=== PATIENT | male | born 1965 | race Caucasian/White ===

== ENCOUNTER → 2019-01-13 | Outpatient (CLI) | payer OTHER ==
[~2019-01-13] MED LIST: CIPR-344 PO; METR500T15 PO
--- NOTE | 2019-01-13 10:59 | RADIOLOGY IMAGING REPORT ---
FACILITY: [facility] PATIENT NAME: Dominic Coronel : 1965 MR: [id number] V: [id number] EXAM DATE: ORDERING PHYSICIAN: MARC GEORGE TECHNOLOGIST: Location: [facility] Patient: Dominic Coronel : 1965 Visit/Account:[id number] Date of Sevice: 01/13/2019 Technique: ACUTE ABDOMEN SERIES 3 VIEW HISTORY: Abdominal pain Comparison studies: Chest radiograph February 22, 2016 report FINDINGS: No acute airspace consolidation. No pleural effusion. No free intraperitoneal air. The b owel gas pattern is nonobstructive. There is moderate stool volume throughout the colon. No evidenc e of organomegaly. IMPRESSION: 1. No acute intra-abdominal process. 2. Moderate stool volume throughout the colon. Report Dictated By: Fernando Luke DO at 01/13/2019 10:53 AM Report E-Signed By: Fernando Luke DO at 01/13/2019 10:55 AM WSN:[id number]
[2019-01-13 11:30] LABS: PLATELET COUNT, AUTOMATED 245 K/uL (150-450)
== END ==
LOC: LAB 10:05
PROVIDERS: ATTEND Internal Medicine
DX: K59.00 Constipation, unspecified (principal); R10.9 Unspecified abdominal pain; R50.9 Fever, unspecified
CPT/HCPCS: 36415; 74022; 81001; 82040; 82150; 82247; 82310; 82374; 82435; 82565; 82947; 83690; 84075; 84132; 84153; 84155; 84295; 84443; 84450; 84460; 84520; 85025

== ENCOUNTER → 2019-01-14 | Outpatient (CLI) | payer OTHER ==
[~2019-01-14] MED LIST changes: +IOPAMIDOL 61% 100 ML INFUS BTL 100 ML ONE
--- NOTE | 2019-01-14 16:00 | RADIOLOGY IMAGING REPORT ---
FACILITY: [facility] [place] PATIENT NAME: Dominic Coronel : 1965 MR: [id number] V: [id number] EXAM DATE: ORDERING PHYSICIAN: MARC GEORGE TECHNOLOGIST: Location: [facility] [place] Patient: Dominic Coronel : 1965 Visit/Account:[id number] Date of Sevice: 01/14/2019 CT ABDOMEN PELVIS W & W/O CONTRAST HISTORY: r/o diverticulitis, abdomen pain, difficulty with bowel movements TECHNIQUE: Axial images acquired through the abdomen/pelvis both with and without IV contrast.. Nimesh nal and sagittal reformatting also performed.Dose Lowering Technique One of the following dose optimization techniques was utilized in the performance of this exam: Autom ated exposure control; adjustment of the mA and/or kV according to the patient's size; or use of an i terative reconstruction technique. Specific details can be referenced in the facility's radiology C T exam operational policy. CONTRAST: 90 mL Isovue-300 COMPARISON: None. FINDINGS: Visualized lung bases: Mild linear stranding in the right middle lobe may represent scarring versus atelectasis Hepatobiliary: There is scattered hypoattenuating nonenhancing lesion seen within the liver. The la rgest are consistent with simple cysts. Some are too small to characterize by CT the largest in the anterior right lobe measures 3.2 x 2.4 cm. This mild diffuse hepatic steatosis Spleen: Negative. Adrenals: Negative. Pancreas: Negative. Kidneys ureters and bladder: There is mild perinephric stranding bilaterally. There is no demonstrat ion of hydronephrosis hydroureter or urolithiasis Genitalia: There coarse calcifications within the prostate GI: There is extensive diverticulosis in the left-sided the colon there is a long segment of diffuse wall thickening within the distal sigmoid colon with extensive infiltrative changes seen in the trev colonic fat consistent with acute diverticulitis. There is also a immediately contiguous collection of hypodense material and air measuring 3.1 x 1.9 x 2.6 cm worrisome for a walled off abscess. There is no evidence of free intraperitoneal air Vessels/spaces/nodes: There multiple shotty retroperitoneal lymph nodes Bones/soft tissues: There Is a tiny umbilical hernia containing fat. There are spondylotic changes i n the visualized thoracolumbar spine Additional findings: None pertinent. IMPRESSION: Findings are consistent with acute diverticulitis in the sigmoid colon with extensive surrounding inf iltrative changes and a contiguous collection of hypodense material and air worrisome for a walled of f abscess. Mild perinephric stranding bilaterally Hepatic cysts Mild diffuse hepatic steatosis Mild linear stranding the right middle lobe which may represent scarring versus atelectasis Results were called to MARC GEORGE at 01/14/2019 3:55 PM. Report Dictated By: Cathryn Gary MD at 01/14/2019 3:41 PM Report E-Signed By: Cathryn Gary MD at 01/14/2019 3:55 PM SEBASN:[id number]
== END ==
LOC: CT 07:01
PROVIDERS: ATTEND Internal Medicine
DX: K57.32 Diverticulitis of large intestine without perforation or abscess without bleeding (principal); K76.0 Fatty (change of) liver, not elsewhere classified; R91.8 Other nonspecific abnormal finding of lung field
CPT/HCPCS: 74178; Q9967

== ENCOUNTER 2019-02-05 01:17 | Day surgery (SDC) | payer OTHER ==
[~2019-02-05] VITALS: Ht 180.3 cm; Wt 98.9 kg
[~2019-02-05 01:17] MED LIST changes: -IOPAMIDOL 61% 100 ML INFUS BTL 100 ML ONE
[2019-02-05] MEDS ORDERED: PROPOFOL EMUL(*) 10MG/ML 20 ML 20 ML ONE ×2 (07:04→14:24)
[2019-02-05 11:56] VITALS: BP 134/92
[2019-02-05] MEDS ORDERED: LIDOCAINE/SOD BICARB 8.4% SYR ID ONE (12:30)
[2019-02-05] MEDS ORDERED: NORMOSOL R SOLN(*) 1000 ML BAG 1,000 ML IV PRN (12:30)
[2019-02-05 14:37] VITALS: BP 99/76
--- NOTE | 2019-02-05 14:37 | NUR ---
1437- PT BROUGHT TO BAY 1 IN LL POSITION, PT EYES OPEN DROWSY, PT VSS, PT MAINTAINING SATS ON 2LPM VIA HF NC, SBAR REPORT FROM Damien THACKER RN AND DR. ROSAS 1439- PT NOT TOLERATING NC, PLACED PT ON RA 1440- PT REMAINS DROWSY, DR. LONDONO AT BEDSIDE
--- NOTE | 2019-02-05 14:43 | Short(Outpt) Discharge Summary ---
Discharge Summary Reason for Hosp/Final Diag: (1) Acute diverticulitis Status: Resolved Hospital Course & Plan: Colonoscopy completed without problems other than diverticuli in sigmoid colon. Departure Discharge to: Home, Self Care Discharge Instructions Home Meds No Active Prescriptions or Reported Meds Diet: Regular Activity: As Tolerated Special Instructions: Your colonoscopy was completed without any problems and your prep was excellent (Good Job!!). I didn't find any polyps or cancers. The only finding was the diverticuli in your sigmoid colon. There was some mild residual inflammation but this is improving and should resolve over the next month. I recommend that you eat a serving of fruit with breakfast, a serving of fruit and a serving of vegetables with lunch and two servings of vegetables with dinner. You can also eat a daily fiber supplement such as metamucil or citrucel to decrease the pressure in your colon to move the stool through to prevent more diverticuli from developing. I recommend that you have another colonoscopy in 10 years for continued colorectal cancer screening. FABIAN LONDONO MD Feb 05, 2019 14:43
[2019-02-05 14:45] VITALS: BP 108/77
--- NOTE | 2019-02-05 14:49 | NUR ---
1449- PT TOLERATING WATER, IN SF POSITION
--- NOTE | 2019-02-05 14:59 | NUR ---
1459- PT MAINTAINING SATS, RESPIRATIONS AND AIRWAY
--- NOTE | 2019-02-05 15:00 | NUR ---
1500- PT ORTHOSTATIC VS STABLE 1503- PT AMBULATORY TO RESTROOM, STEADY GAIT NOTED 1505- PT REPORTS VOID X 1 WITHOUT ISSUES 1507- D/C IV WITH CATH INTACT, PRESSURE DRESSING APPLIED WITH GAUZE AND COBAND 1513- PT DRESSED WAITING ON RIDE
[2019-02-05 15:01] VITALS: BP 107/79
[2019-02-05 15:02] VITALS: BP 107/91
--- NOTE | 2019-02-05 15:25 | NUR ---
1525- REVIEWED D/C INSTRUCTIONS WITH PT AND S/O 1530- PT AMBULATORY TO PARMJIT, ACCOMPANIED BY S/O SIMONE AND ANDREA GUERRERO
== END 2019-02-05 15:30 | disposition home or self-care (01) ==
LOC: OR 01:17
PROVIDERS: ATTEND Surgery
DX: K57.32 Diverticulitis of large intestine without perforation or abscess without bleeding (principal)
CPT/HCPCS: 00811; 45378; J2704